=== PATIENT | male | born 1980 | race Caucasian/White ===

== ENCOUNTER → 2016-08-06 | Outpatient (CLI) | payer OTHER ==
[~2016-08-06] MED LIST: CIPR2.5D OS
[2016-08-06 12:37] VITALS: BP 126/83
--- NOTE | 2016-08-06 12:37 | Urgent Care T Sheet Gen (E) ---
Intake General Temperature (Fahrenheit): 98.4 Pulse: 52 Blood Pressure Systolic: 126 Blood Pressure Diastolic: 83 Respirations: 20 SPO2: 100 Description of Symptoms patient presents with possible pink eye. States yesterday the L eye became red , sensitive and painful. Woke up with it matted this AM. No cough or cold symptoms. No allergies. No meds. R eye is light sensitive however no redness or drainage. Wears contacts however is wearing glasses today. Respiratory Constitutional Symptoms: No syptoms reported EENTM: Eye pain Blurred vision Eye tearingNo Nose Congestion Respiratory: No symptoms reported Cardiovascular: No symptoms reported Gastrointestinal/Abdominal: No symptoms reported All Other Systems Reviewed Remaining Systems: All other systems reviewed with negative findings Physical Exam Physical Exam General Appearance: WD/WN No apparent distress Eyes, Ears, Nose, Throat Ex: PERRL/EOMI (L conjunctiva is very red. surrounding tissue is swollen. R eye is OK) TMs normal Pharynx normal Other ( nose is clear) Neck Exam: SuppleNo Lymphadenopathy Respiratory Exam: Lungs clear Normal breath sounds Cardiovascular Exam: Regular rate, rhythm Departure Urgent Care Impression Impression: Primary Impression: Conjunctivitis Qualified Code: H10.32 - Unspecified acute conjunctivitis, left eye Departure Disposition: 01 HOME OR SELF-CARE Condition: Stable Additional Instructions: I have started the patient on Cipro for treatment. No contacts for the next 2 days. If symptoms start in R eye, may use drops. Return as needed Patient understands DC instructions. All questions were answered. Scripts Ciprofloxacin HCl (Ciloxan 0.3% Ophthalmic Drops)2.5 Ml Drops2 Drops OS QID #1 BTL Instil 2 drops in L eye QID x 5 days Prov:MARITZA JIMÉNEZ 08/06/16 End of report . MARITZA JIMÉNEZ August 06, 2016 12:37
== END ==
LOC: MHUC 12:21
PROVIDERS: ATTEND Physician Assistant
DX: H10.32 Unspecified acute conjunctivitis, left eye (principal)
CPT/HCPCS: 99203